=== PATIENT | female | born 1975 | race Caucasian/White ===

== ENCOUNTER 2022-04-04 04:39 | Emergency (ER) | payer SELFPAY ==
[2022-04-04] MEDS ORDERED: HYDROcodone/Acetaminophen 5/325 mg Tablet ONE (07:10)
== END 2022-04-04 07:25 | disposition home or self-care (01) ==
LOC: ERS 04:39
DX: M25.561 Pain in right knee (principal); I10 Essential (primary) hypertension

== ENCOUNTER 2022-05-27 16:13 | Emergency (ER) | payer SELFPAY | END 2022-05-27 16:56 | disposition home or self-care (01) | LOC: ERS 16:13 | DX: M25.461 Effusion, right knee (principal); I10 Essential (primary) hypertension | CPT/HCPCS: 99283 ==

== ENCOUNTER 2022-09-21 17:12 | Emergency (ER) | payer SELFPAY ==
[2022-09-21] MEDS ORDERED: Boostrix 0.5 ML (Tdap) VIAL (>/=7 yrs of age) ONE (18:29)
[2022-09-21] MEDS ORDERED: Ketorolac Tromethamine 30 MG/ML VIAL ONE (18:29)
== END 2022-09-21 19:33 | disposition home or self-care (01) ==
LOC: ERS 17:12
DX: S61.412A Laceration without foreign body of left hand, initial encounter (principal); I10 Essential (primary) hypertension; Z23 Encounter for immunization; W26.0XXA Contact with knife, initial encounter
CPT/HCPCS: 90715; J1885